=== PATIENT | female | born 1995 | race Caucasian/White ===

== ENCOUNTER 2017-01-01 10:37 | Emergency (ER) | payer OTHER ==
[~2017-01-01] VITALS: Ht 162.6 cm; Wt 133.0 kg
[~2017-01-01 10:37] MED LIST: ACET500C5 PO; AMLO2.5T2 PO; DOCU100C PO; FERR-55 PO; LORA10TA PO; NEPH PO; NITR-58 PO
[2017-01-01 10:44] VITALS: Ht 162.6 cm; Wt 133.0 kg
--- NOTE | 2017-01-01 11:32 | ERD ---
ER Documentation Chief Complaint Chief Complaint cold symptoms x 3 days HPI This is a 21-year-old female who presents to the emergency department today complaining of cough and runny nose for the past 3 days. States that she took Tylenol but no other medications. Denies any fevers or chills, sore throat, vomiting or diarrhea ROS All systems reviewed and are negative except as per history of present illness. Medications Home Meds Active Scripts Guaifenesin-Dextromethorphan* (Robitussin* DM) 100MG/10MG/5ML Syrup, 10 ML PO Q6H Y for COUGH for 7 Days, ML Prov:SAVANNA ROBLERO PA-C 01/01/17 Acetaminophen* (Tylophen*) 500 Mg Capsule, 1 CAP PO Q6H Y for PAIN AND OR ELEVATED TEMP, #20 CAP Prov:MARY JUDGE NP 11/18/14 Nitrofurantoin Monohyd Macrocr* (Macrobid*) 100 Mg Capsr, 100 MG PO BID for 7 Days, CAP Prov:MARY JUDGE [employer] 11/18/14 Reported Medications Docusate Sodium (Doc-Q-Lace) 100 Mg Capsule, 100 MG PO DAILY 05/05/12 Ferrous Sulfate* (Ferrous Sulfate*) 325 Mg Tablet, 325 MG PO BID 05/05/12 Amlodipine Besylate* (Norvasc*) 2.5 Mg Tablet, 7.5 MG PO Q12 05/05/12 Loratadine (Loratadine) 10 Mg Tablet, 10 MG PO HS 05/05/12 Multivit/Ca Carb/B Cmplx/Fa* (Juli-Ken*) 1 Tab Tab, 1 TAB PO DAILY 05/05/12 Allergies Allergies: Coded Allergies: No Known Allergy (Unverified , 03/05/13) PMhx/Soc History of Surgery: Yes ( Kidney Transplant 01/2014) Anesthesia Reaction: No Hx Neurological Disorder: No Hx Respiratory Disorders: No Hx Cardiac Disorders: No Hx Psychiatric Problems: No Hx Miscellaneous Medical Probl: Yes (RF, HTN) Hx Alcohol Use: No Hx Substance Use: No Hx Tobacco Use: No Physical Exam Vitals Vital Signs Date Time Temp Pulse Resp B/P Pulse Ox O2 Delivery O2 Flow Rate FiO2 01/01/17 10:44 99.4 80 18 123/83 98 Physical Exam Const: obese, NAD Head: Atraumatic Eyes: Normal Conjunctiva ENT: Ears TMs normal. Nose no drainage. Throat no erythema no exudate no vesicles Neck: Full range of motion..~ No meningismus. Resp: Clear to auscultation bilaterally Cardio: Regular rate and rhythm, no murmurs Abd: Soft, non tender, non distended. Normal bowel sounds Skin: No petechiae or rashes Neur: Awake and alert Psych: Normal Mood and Affect Procedures/MDM This is a 21-year-old female presents the emergency department today with signs and symptoms consistent with a URI likely viral. Patient is afebrile and otherwise well-appearing. Her oxygen saturation 98%. I do not feel this requires laboratory workup or imaging at this time. Patients symptoms at this time most consistent with URI. I have low suspicion for strep pharyngitis, peritonsillar abscess, retropharyngeal abscess, otitis media, PNA, sinusitis, abscess, meningitis, sepsis, or other acute infectious bacterial process. Given a prescription for Robitussin, Flonase, Zyrtec At this time the patient is stable for discharge and outpatient management. They should follow up with their PCP in the next 1-2. They may return to the emergency department sooner if symptoms persist or worsen. Patient understood and agreed with the plan. Departure Diagnosis: Primary Impression: URI (upper respiratory infection) URI type: unspecified URI Qualified Code: J06.9 - Upper respiratory tract infection, unspecified type Condition: SAVANNA Beyer PA-C Jan 01, 2017 11:32
[2017-01-01] MEDS ORDERED: UDROBDM PO (11:33)
== END 2017-01-01 11:55 | disposition home or self-care (01) ==
LOC: FTE 10:37
DX: J06.9 Acute upper respiratory infection, unspecified (principal); I10 Essential (primary) hypertension
CPT/HCPCS: 99283

== ENCOUNTER 2017-05-10 15:01 | Inpatient (IN) | END 2017-05-12 16:35 | disposition short-term general hospital (02) | DRG 872 ==